=== PATIENT | female | born 1995 | race Caucasian/White ===

== ENCOUNTER 2018-06-21 02:54 | Emergency (ER) | payer BC ==
[2018-06-21] MEDS ORDERED: NS 1,000 ML IV ONE ×2 (03:04→03:51)
--- NOTE | 2018-06-21 03:04 | EDPHY ---
H & P Stated Complaint: UTI symptoms progressed to R flank pain, fever-like Time Seen by Provider: 06/21/18 03:04 HPI/ROS: HPI CHIEF COMPLAINT: Dysuria, back pain, low abdominal pain, rlq pain, HISTORY OF PRESENT ILLNESS: Very pleasant 23-year-old female, otherwise healthy , presents to the emergency room with dysuria, urinary frequency and low back pain worse on the right than left. Also complains of mild rlq pain, She is concerned she may have a urinary tract infection/kidney infection. She reports feeling warm at home but no recorded temperature. She reports nausea but no vomiting. She denies any chest pain or shortness of breath. Her main complaint is low back pain, urinary urgency and dysuria. Past Medical History: Denies Past Surgical History: Denies Social History: Denies Family History: Denies ROS REVIEW OF SYSTEMS: 10 Systems were reviewed and negative with the exception of the elements mentioned in the history of present illness. Exam Constitutional triage nursing summary reviewed, vital signs reviewed, awake/ alert. Eyes normal conjunctivae and sclera, EOMI, PERRLA. HENT normal inspection, atraumatic, moist mucus membranes, no epistaxis, neck supple/ no meningismus, no raccoon eyes. Respiratory clear to auscultation bilaterally, normal breath sounds, no respiratory distress, no wheezing. Cardiovascular rate normal, regular rhythm, no murmur, no edema, distal pulses normal. Gastrointestinal soft, non-tender, no rebound, no guarding, normal bowel sounds, no distension, no pulsatile mass. Genitourinary mild right CVA tenderness on exam. Musculoskeletal no midline vertebral tenderness, full range of motion, no calf swelling, no tenderness of extremities, no meningismus, good pulses, neurovascularly intact. Skin pink, warm, & dry, no rash, skin atraumatic. Neurologic awake, alert and oriented x 3, AAOx3, moves all 4 extremities equally, motor intact, sensory intact, CN II-XII intact, normal cerebellar, normal vision, normal speech. Psychiatric normal mood/affect. Heme/Lymph/Immune no lymphadenopathy. Differential Diagnosis: Differential diagnosis includes but is not limited to and in no particular order: Bowel obstruction, appendicitis, gallbladder disease, diverticulitis, colitis, enteritis, perforated viscus, gastritis, GERD , esophagitis, urinary tract infection, pyelonephritis, kidney stones Medical Decision Making: Plan for this patient IV establishment IV fluids, basic labs, Zofran for nausea, Toradol for pain control, and re-evaluate. Check UA, check Re-evaluation: Urinalysis reveals no evidence urinary tract infection. Re-examination abdomen she has mild tender palpation right lower quadrant we discussed CT imaging to rule out acute appendicitis. She has agreed for CT imaging. She does have reproducible right lower quadrant abdominal pain on exam. CT scan abdomen pelvis with IV contrast faxed me by direct Radiology 5:30 a.m. This shows partially obstruction right uropathy due to distal ureteral calculus Also shows nonobstructing left kidney stones Also shows mildly thickened of the urinary bladder wall suggesting component of inflammation infection 2.5 mm calculus present. Appendix seen and normal. Patient re-evaluated this time resting comfortably abdomen is soft nontender. She no longer has any right-sided abdominal pain she is pain-free and resting comfortably. CT scan shows kidney stone. I have discussed this at length with her. Plan for follow up with Urology. Additionally return precautions discussed return emergency room if worsening abdominal pain, fever, vomiting, not doing well. Source: Patient - Personal History LMP (Females 10-55): 15-21 Days Ago Current Tetanus/Diphtheria Vaccine: Yes Current Tetanus Diphtheria and Acellular Pertussis (TDAP): Yes - Medical/Surgical History Hx Asthma: No Hx Chronic Respiratory Disease: No Hx Diabetes: No Hx Cardiac Disease: No Hx Renal Disease: No Hx Cirrhosis: No Hx Alcoholism: No Hx HIV/AIDS: No Hx Splenectomy or Spleen Trauma: No Other PMH: tonsillectomy, addenoids - Social History Smoking Status: Never smoked Constitutional: Initial Vital Signs Temperature (C) 36.9 C 06/21/18 02:56 Heart Rate 76 06/21/18 02:56 Respiratory Rate 20 06/21/18 02:56 Blood Pressure 126/82 H 06/21/18 02:56 O2 Sat (%) 99 06/21/18 02:56 O2 Delivery Mode Room Air Allergies/Adverse Reactions: No Known Allergies Allergy (Unverified 06/21/18 02:55) Home Medications: Medication Instructions Recorded Cephalexin [Keflex] 500 mg PO Q6H #28 cap 06/21/18 Hydrocodone/APAP 5/325 [Grace 1 - 2 tab PO Q4H PRN #10 tab 06/21/18 5/325] Tamsulosin HCl [Flomax] 0.4 mg PO DAILY #10 cap 06/21/18 Medical Decision Making - Data Points Laboratory Results: Laboratory Results 06/21/18 03:11 06/21/18 03:11 06/21/18 06/21/18 06/21/18 04:30 03:11 03:11 WBC RBC Hgb Hct MCV MCH MCHC RDW Plt Count MPV Neut % (Auto) Lymph % (Auto) [place] % (Auto) Eos % (Auto) Baso % (Auto) Nucleat RBC Rel Count Absolute Neuts (auto) Absolute Lymphs (auto) Absolute Monos (auto) Absolute Eos (auto) Absolute Basos (auto) Absolute Nucleated RBC Immature Gran % Immature Gran # Sodium 140 mEq/L mEq/L (135-145) Potassium 3.5 mEq/L mEq/L (3.5-5.2) Chloride 107 mEq/L mEq/L (97-110) Carbon Dioxide 25 mEq/l mEq/l (22-31) Anion Gap 8 mEq/L mEq/L (6-14) BUN 7 mg/dL mg/dL (7-23) Creatinine 0.5 mg/dL L mg/dL (0.6-1.0) Estimated GFR > 60 Glucose 91 mg/dL mg/dL (70-100) Calcium 9.1 mg/dL mg/dL (8.5-10.4) Beta HCG, Qual NEGATIVE Urine Color YELLOW Urine Appearance CLEAR Urine pH 6.0 (5.0-7.5) Ur Specific Royal 1.009 (1.002-1.030) Urine Protein NEGATIVE (NEGATIVE) Urine Ketones TRACE H (NEGATIVE) Urine Blood NEGATIVE (NEGATIVE) Urine Nitrate NEGATIVE (NEGATIVE) Urine Bilirubin NEGATIVE (NEGATIVE) Urine Urobilinogen NEGATIVE EU EU (0.2-1.0) Ur Leukocyte Esterase NEGATIVE (NEGATIVE) Urine Glucose NEGATIVE (NEGATIVE) 06/21/18 03:11 WBC 10.46 10^3/uL H 10^3/uL (3.80-9.50) RBC 4.70 10^6/uL 10^6/uL (4.18-5.33) Hgb 13.5 g/dL g/dL (12.6-16.3) Hct 41.3 % % (38.0-47.0) MCV 87.9 fL fL (81.5-99.8) MCH 28.7 pg pg (27.9-34.1) MCHC 32.7 g/dL g/dL (32.4-36.7) RDW 12.6 % % (11.5-15.2) Plt Count 191 10^3/uL 10^3/uL (150-400) MPV 10.1 fL fL (8.7-11.7) Neut % (Auto) 50.1 % % (39.3-74.2) Lymph % (Auto) 34.7 % % (15.0-45.0) [place] % (Auto) 8.6 % % (4.5-13.0) Eos % (Auto) 5.7 % % (0.6-7.6) Baso % (Auto) 0.7 % % (0.3-1.7) Nucleat RBC Rel Count 0.0 % % (0.0-0.2) Absolute Neuts (auto) 5.24 10^3/uL 10^3/uL (1.70-6.50) Absolute Lymphs (auto) 3.63 10^3/uL H 10^3/uL (1.00-3.00) Absolute Monos (auto) 0.90 10^3/uL H 10^3/uL (0.30-0.80) Absolute Eos (auto) 0.60 10^3/uL H 10^3/uL (0.03-0.40) Absolute Basos (auto) 0.07 10^3/uL 10^3/uL (0.02-0.10) Absolute Nucleated RBC 0.00 10^3/uL 10^3/uL (0-0.01) Immature Gran % 0.2 % % (0.0-1.1) Immature Gran # 0.02 10^3/uL 10^3/uL (0.00-0.10) Sodium Potassium Chloride Carbon Dioxide Anion Gap BUN Creatinine Estimated GFR Glucose Calcium Beta HCG, Qual Urine Color Urine Appearance Urine pH Ur Specific [place] Urine Protein Urine Ketones Urine Blood Urine Nitrate Urine Bilirubin Urine Urobilinogen Ur Leukocyte Esterase Urine Glucose Medications Given: Discontinued Medications Sodium Chloride (Ns) 1,000 mls @ 0 mls/hr IV EDNOW ONE; Wide Open PRN Reason: Protocol Stop: 06/21/18 03:05 Last Admin: 06/21/18 03:20 Dose: 1,000 mls Sodium Chloride (Ns) 1,000 mls @ 0 mls/hr IV ONCE ONE; Wide Open PRN Reason: Protocol Stop: 06/21/18 03:52 Last Admin: 06/21/18 03:52 Dose: 1,000 mls Ketorolac Tromethamine (Toradol) 15 mg IVP EDNOW ONE Stop: 06/21/18 03:20 Last Admin: 06/21/18 03:22 Dose: 15 mg Ondansetron HCl (Zofran) 4 mg IVP EDNOW ONE Stop: 06/21/18 03:20 Last Admin: 06/21/18 03:22 Dose: 4 mg Departure - Departure Disposition: Home, Routine, Self-Care Clinical Impression: Abdominal pain, Kidney stone on right side Condition: Good Instructions: Kidney Stones (ED), Renal Colic (ED), Acute Abdominal Pain (ED) Additional Instructions: 1. Drink lots of fluids stay well-hydrated 2. Rest today. 3. Return to the emergency room if develops worsening abdominal pain, fever, vomiting 4. Follow up with Urology Referrals: NONE *PRIMARY CARE P,. [Primary Care Provider] - As per Instructions Varghese Meyers MD [Medical Doctor] - As per Instructions Prescriptions: Cephalexin [Keflex] 500 mg PO Q6H #28 cap Hydrocodone/APAP 5/325 [Grace 5/325] 1 - 2 tab PO Q4H PRN #10 tab PRN Reason: Pain, Moderate Tamsulosin HCl [Flomax] 0.4 mg PO DAILY #10 cap
[2018-06-21] MEDS ORDERED: ONDANSETRON 4 MG/2 ML VIAL IVP ONE (03:19)
[2018-06-21] MEDS ORDERED: KETOROLAC 15 MG/1 ML SDV IVP ONE (03:19)
[2018-06-21 03:22] LABS: PLATELET COUNT 191 10^3/uL (150-400)
[2018-06-21] MEDS ORDERED: IOPAMIDOL (ISOVUE-300) 100 ML BTL ONE (04:49)
[2018-06-21 05:59] VITALS: BP 98/76
== END 2018-06-21 05:59 | disposition home or self-care (01) ==
DX: R10.31 Right lower quadrant pain (principal); N20.0 Calculus of kidney; E86.9 Volume depletion, unspecified
CPT/HCPCS: 96374; J1885; J2405; Q9967